=== PATIENT | female | born 1985 ===

== ENCOUNTER 2016-07-27 22:27 | Emergency (ER) | payer OTHER ==
[~2016-07-27] VITALS: Ht 152.4 cm; Wt 83.6 kg
[~2016-07-27 22:27] MED LIST: ACET500C5 PO; MAG-19 PO
[2016-07-27 22:31] VITALS: Ht 152.4 cm; Wt 83.6 kg
--- NOTE | 2016-07-28 00:29 | ERD ---
ER Documentation Chief Complaint Date/Time DATE: 07/28/16 TIME: 00:25 Chief Complaint chest pain x 30 minutes HPI This is a 31-year-old female with history of seizures and Down syndrome brought in by mother presenting to the emergency department by mother for sore throat and congestion actually started this morning. Mother states that she started having palpitations, shortness of breath and localized chest pain half an hour prior to being seen, however chest pain has resolved. Mother denies any cough. Denies taking any medications today. ROS All systems reviewed and are negative except as per history of present illness. Medications Home Meds Active Scripts Acetaminophen* (Tylophen*) 500 Mg Capsule, 1 CAP PO Q6H Y for PAIN AND OR ELEVATED TEMP, #20 CAP Prov:JACINTO WHITMORE NP 04/10/16 Magaldrate/Simethicone* (Mylanta*) 355 Ml Susp, 30 ML PO QID Y for GASTROINTESTINAL UPSET, #1 BOTTLE Prov:JACINTO WHITMORE NP 04/10/16 Reported Medications [none] Unknown Strength No Conflict Check 04/10/16 Allergies Allergies: Coded Allergies: No Known Allergy (Unverified , 07/27/16) PMhx/Soc Hx Neurological Disorder: Yes (down's syndrome) Hx Miscellaneous Medical Probl: Yes (hypothyroid, seizure) Hx Alcohol Use: No Hx Substance Use: No Hx Tobacco Use: No Physical Exam Vitals Vital Signs Date Time Temp Pulse Resp B/P Pulse Ox O2 Delivery O2 Flow Rate FiO2 07/27/16 22:31 97.5 60 20 119/71 99 Physical Exam GENERAL: no acute distress, non-toxic appearing, sitting up in bed HENT: normocephalic/atraumatic EYES: conjunctiva is normal NECK: no noticeable or palpable swelling, no carotid bruits, no JVD CARDIOVASCULAR: RRR, good S1S2, no murmurs or gallops heard PULM: clear to auscultation, no use of accessory muscles, no crackles or wheezes. ABDOMEN: normal bowel sounds, abdomen soft and nontender EXT: no edema, cyanosis or clubbing MUSCULOSKELETAL: 5/5 strength, normal range of motion, no swollen or erythematous joints. NEURO: alert and oriented SKIN: no rashes, skin warm and dry, no erythematous areas BREAST: breast exam was not relevant, therefore not preformed PSYCH: normal mood and mentation, denies suicidal or homicidal ideation and thoughts Procedures/MDM This is a 31-year-old female presents to the emergency department for sore throat and chest pain that has resolved by the time I examined her. On examination patient did not have any evidence of strep tenderness, peritonsillar abscess or retropharyngeal abscess. Patient appears to have a viral upper respiratory infection. In addition patient was complaining of localized chest pain which shortness of breath and palpitations in the waiting room however it has resolved, this is likely due to anxiety. EKG was done in the ED and was unremarkable for STEMI. Chest x-ray did not show any infiltrates , pleural effusion or pneumothorax. I discussed with patient's mother and patient to follow-up with a primary care physician tomorrow for further action management. Mother states that she has an appointment on Thursday. I discussed return to the ER for any worsening signs or symptoms. Mother understood and agreed plan. EKG: read and signed off by Rate/Rhythm: [Sinus bradycardia at 59] QRS, ST, T-waves: [T-wave inversion in aVR and V1] Impression: [No STEMI] Departure Diagnosis: Primary Impression: Chest pain Additional Impression: Sore throat Condition: Fair SKYE LAW PA-C Jul 28, 2016 00:29
--- NOTE | 2016-07-28 00:49 | RADRPT ---
PROCEDURE: Portable chest x-ray. CLINICAL INDICATION: Chest pain. TECHNIQUE: Portable AP view of the chest. COMPARISON: 04/10/2016. FINDINGS: There is minimal bibasilar atelectasis. No pulmonary edema or conolidation is identified. The car diac silhouette is magnified. No pleural effusion is seen. There is no pneumothorax. IMPRESSION: 1. No evidence of acute cardiopulmonary disease. RPTAT: HTAR .Mariano Melissa MD, MD Date Time Electronically viewed and signed by .Mariano Melissa MD, on 07/28/2016 00:48 .R/
[2016-07-28 01:13] VITALS: BP 112/57; PULSE 53; RESP 16
== END 2016-07-28 01:14 | disposition home or self-care (01) ==
LOC: FTE 22:27
DX: R07.9 Chest pain, unspecified (principal); E03.9 Hypothyroidism, unspecified
CPT/HCPCS: 71010; 93005; Z7502